=== PATIENT | female | born 1965 | race Caucasian/White ===

== ENCOUNTER 2018-08-27 13:04 | Day surgery (SDC) | payer OTHER ==
[~2018-08-27] VITALS: Ht 182.9 cm; Wt 87.3 kg
[~2018-08-27 13:04] MED LIST: Armour Thyroid90 MG PO; Dhea Tablet1 EACH PO; Naltrexone HCl50 MG PO
[2018-08-27] MEDS ORDERED: LEVSOD50 PO (13:46)
[2018-08-27] MEDS ORDERED: PROG100 PO (13:46)
--- NOTE | 2018-08-27 14:01 | NUR ---
08/27/18 1401 Sandra Porter RN MET WITH PT AND EXPLAINED THE UPCOMING PROCEDURE UNTIL ALL QUESTIONS WERE ANSWERED. LUNG SOUNDS ARE CLEAR AND REGULAR BILATERALLY PER AUSCULTATION. CALL LIGHT IN REACH. WARM BLANKETS OFFERRED.
== END 2018-08-27 15:04 | disposition home or self-care (01) ==
LOC: ORSCSDS 13:04
PROVIDERS: Internal Medicine Gastroenterology
PROC: 0DBH8ZX Excision of Cecum, Via Natural or Artificial Opening Endoscopic, Diagnostic (ICD-10-PCS; principal; 2018-08-27 14:15)
PROC: 0DBN8ZX Excision of Sigmoid Colon, Via Natural or Artificial Opening Endoscopic, Diagnostic (ICD-10-PCS; principal; 2018-08-27 14:15)
DX: Z12.11 Encounter for screening for malignant neoplasm of colon (principal); D12.0 Benign neoplasm of cecum; D12.5 Benign neoplasm of sigmoid colon; K64.8 Other hemorrhoids; E03.9 Hypothyroidism, unspecified; Z79.899 Other long term (current) drug therapy
CPT/HCPCS: 88305; J7120

== ENCOUNTER → 2023-08-28 | Outpatient (CLI) | payer BC ==
[~2023-08-28] MED LIST changes: +LEVSOD50 PO; +PROG100 PO
[2023-08-28 21:07] LABS: Bacterial Vaginosis PCR Negative (NEGATIVE); Candida Group, PCR NOT DETECTED (NOT DETECT); Candida glabrata-krusei, PCR NOT DETECTED (NOT DETECT)
[2023-08-31 19:12] LABS: APTIMA MEDIA TYPE Unisex Swab; C. TRACHOMATIS BY TMA Negative (Negative); N. GONORRHOEAE BY TMA Negative (Negative); SPECIMEN SOURCE Not Provided
== END ==
LOC: LAB SHORT 16:40 → LAB 16:40
PROVIDERS: General Practice
DX: N89.9 Noninflammatory disorder of vagina, unspecified (principal)
CPT/HCPCS: 87481; 87491; 87591; 87661; 87801

== ENCOUNTER → 2024-01-26 | Outpatient (CLI) | payer BC ==
[2024-01-26 13:35] LABS: Free Thyroxine 0.51 ng/dL (0.70-1.60); Thyroid Stimulating Hormone 39.055 uIU/mL (0.360-4.800)
[2024-01-28 15:23] LABS: TRIIODOTHYRONINE,TOTAL T3 TTL 99 ng/dL (80-200)
== END | disposition home or self-care (01) ==
LOC: LAB 13:10 → LAB SHORT 13:10
PROVIDERS: Family Medicine
DX: E03.9 Hypothyroidism, unspecified (principal)
CPT/HCPCS: 84439; 84443; 84480